=== PATIENT | male | born 1995 | race Caucasian/White ===

== ENCOUNTER 2022-08-22 12:29 | Emergency (ER) | payer SELFPAY ==
[~2022-08-22] VITALS: Ht 180.3 cm; Wt 81.6 kg
[2022-08-22 12:45] VITALS: BP 127/79
--- NOTE | 2022-08-22 12:52 | NUR ---
PT AMBULATED TO ER BED 6
[2022-08-22] MEDS ORDERED: IBUPROFEN 600 MG TAB PO ONE (13:15)
[2022-08-22] MEDS ORDERED: LIDOCAINE MPF 1% 10 MG/ML VIAL INJ ONE (15:05)
--- NOTE | 2022-08-22 15:33 | NUR ---
CATHY SILVA AT BEDSIDE FOR PROCEDURE
--- NOTE | 2022-08-22 16:31 | NUR ---
PER ER MID LEVEL, PT R 3RD FINGER, NON ADHERENT X 1 APPLIED. FROG SPLINT APPLIED WELL. PT TOLERATED SPLINT. + CMS AFTER APPLICATION.
[2022-08-22] MEDS ORDERED: ACET-8386 PO (16:45)
[2022-08-22] MEDS ORDERED: BACI1PAC6 TP (16:45)
[2022-08-22] MEDS ORDERED: CEPH500C16 PO (16:45)
[2022-08-22] MEDS ORDERED: IBUP-2213 PO (16:45)
[2022-08-22 17:05] VITALS: BP 120/74
--- NOTE | 2022-08-22 17:05 | NUR ---
Patient discharged with v/s stable. Written and verbal after care instructions given and explained. Patient verbalized understanding. Ambulatory with steady gait. All questions addressed prior to discharge. Advised to follow up with PMD. PAIN 2/10, HAS FINGER SPLINTED, SUTURES PLACED BY PA.
== END 2022-08-22 17:05 | disposition home or self-care (01) ==
LOC: MED 12:29
DX: S62.622A Displaced fracture of middle phalanx of right middle finger, initial encounter for closed fracture (principal); X58.XXXA Exposure to other specified factors, initial encounter; Y93.89 Activity, other specified; Y92.89 Other specified places as the place of occurrence of the external cause; Y99.8 Other external cause status
CPT/HCPCS: 12002; 73140; 90471; 90715; 99283; J2001